=== PATIENT | male | born 1990 | race Caucasian/White ===

== ENCOUNTER 2018-02-07 11:33 | Emergency (ER) | payer SELFPAY ==
[2018-02-07] MEDS ORDERED: Cephalexin 500 MG Cap ONE (12:15)
--- NOTE | 2018-02-07 13:10 | EDM.PDOC ---
ED HPI GENERAL MEDICAL PROBLEM - General Chief Complaint: Upper Extremity Injury/Pain Stated Complaint: INJURY TO HAND FROM DRILL BIT Time Seen by Provider: 02/07/18 11:50 Source of Information: Reports: Patient, RN History Limitations: Reports: No Limitations - History of Present Illness INITIAL COMMENTS - FREE TEXT/NARRATIVE: 27 yr male presents to ER with trauma/puncture of drill bit into top side of left hand, 2nd and third knuckle area. States he was at work and the drill bit bounced off the boat and went through the right top of hand. Pt is moving his hand and states pain. Pt is able to touch fingers to thumb and is able to move fingers side to side. States tetanus vaccine in last couple year and no allergies. States he works for the [employer]. - Related Data Allergies Allergy/AdvReac Type Severity Reaction Status Date / Time No Known Allergies Allergy Verified 02/07/18 12:32 Home Meds: Home Meds NK [No Known Home Meds] 02/07/18 [History] Review of Systems - Review of Systems Review Of Systems: See Below Constitutional: Reports: No Symptoms Respiratory: Reports: No Symptoms Cardiovascular: Reports: No Symptoms Musculoskeletal: Reports: Hand Pain Skin: Reports: Wound (top of left hand) ED EXAM, GENERAL - Physical Exam Exam: See Below Exam Limited By: No Limitations General Appearance: Alert, No Apparent Distress Ears: Hearing Grossly Normal Neck: Normal Inspection, Non-Tender, Full Range of Motion Respiratory/Chest: No Respiratory Distress Extremities: Normal Range of Motion, Normal Capillary Refill Neurological: Alert, Oriented, Normal Cognition Psychiatric: Normal Affect, Normal Mood Skin Exam: Warm, Normal Color, Wound/Incision (Puncture wound to top of left hand through the skin of base of 2nd and third finger. Moves fingers freely.) Course - Re-Assessments/Exams Free Text/Narrative Re-Assessment/Exam: 02/07/18 13:11 Area cleansed well with povidine and saline. Area dried well. Durabond applied to 3 subcutaneous, lacerations to top of left hand. Edges approximated well. Telfa pad applied. Recommend no antibiotic oint to area, as this would make the durabond slough off. Emily applied. Hand/forearm immobilizer applied and huan wrap used to hold in place. Keflex 1 tablet tid X 7 days. Keep area clean and dry. Monitor for any signs of infection. Tetanus vaccine UTD per pt. Recommend Follow-up in clinic in 3 days to assess wound. Departure - Departure Time of Disposition: 12:20 Disposition: Home, Self-Care 01 Condition: Good Clinical Impression: Laceration of hand - Discharge Information *PRESCRIPTION DRUG MONITORING PROGRAM REVIEWED*: Not Applicable *COPY OF PRESCRIPTION DRUG MONITORING REPORT IN PATIENT POLA: Not Applicable Instructions: Laceration Care, Adult Referrals: PCP,None [Primary Care Provider] - Forms: ED Department Discharge Additional Instructions: Take Cephelexin 500mg every 8 hours until gone. Return to clinic for follow up. Notify MD if swelling oozing or redness to site. Keep site dry. See Laceration care sheet.
== END 2018-02-07 12:27 | disposition home or self-care (01) ==
LOC: LB.ED 11:33
DX: S61.412A Laceration without foreign body of left hand, initial encounter (principal); W29.8XXA Contact with other powered hand tools and household machinery, initial encounter
CPT/HCPCS: 12001; 99283; A9270

== ENCOUNTER 2021-06-23 18:51 | Emergency (ER) | payer MEDICAID ==
--- NOTE | 2021-06-23 19:04 | EDM.PDOC ---
ED HPI GENERAL MEDICAL PROBLEM - General Chief Complaint: General Stated Complaint: knee injury Time Seen by Provider: 06/23/21 18:55 - History of Present Illness INITIAL COMMENTS - FREE TEXT/NARRATIVE: Pt comes in with C/O Rt knee pain. He was working tying down a load of logs with a binder, when he slipped and twisted falling to the ground. He felt knee pain and thought his knee cap was pushed to the side. When he tried to straighten his leg the knee cap went back into place. This happened this afternoon. He has sone pain with movement, but at rest the pain is mild. He takes no other meds, and claims he is healthy. - Related Data Allergies Allergy/AdvReac Type Severity Reaction Status Date / Time No Known Allergies Allergy Verified 02/07/18 12:32 Home Meds: Home Meds NK [No Known Home Meds] 02/07/18 [History] ED ROS GENERAL - Review of Systems Review Of Systems: Comprehensive ROS is negative, except as noted in HPI. Musculoskeletal: Reports: Other (Rt knee pain.) ED EXAM, GENERAL - Physical Exam Exam: See Below Extremities: Other (Pt is sitting with an ice kathy on his rt knee. I removed it and the Patella is in place. I can gently move it in all directions a little with minimal pain. He can also flex his Rt knee about 50% slowly.) Course - Re-Assessments/Exams Free Text/Narrative Re-Assessment/Exam: 06/23/21 19:04 He will be given a small knee immobilizer to use for the next few days. Apply ice frequently for a couple days. Tylenol and/ or Motrin as needed for pain. Light duty as tolerated. Follow up in the clinic for re check late this week, or early next week. He may need to have an MRI. Departure - Departure Time of Disposition: 19:15 Disposition: Home, Self-Care 01 Clinical Impression: Strain of knee and leg, right Qualifiers: Encounter type: initial encounter Qualified Code(s): S86.911A - Strain of unspecified muscle(s) and tendon(s) at lower leg level, right leg, initial encounter - Discharge Information *PRESCRIPTION DRUG MONITORING PROGRAM REVIEWED*: No *COPY OF PRESCRIPTION DRUG MONITORING REPORT IN PATIENT POLA: No Additional Instructions: Use knee immobilizer with all activity. Tylenol and/ or Motrin for pain. Apply ice for a couple days. Light duty activity as tolerated. Follow up in the clinic late this week or early next week for re check. An MRI may be needed.
== END 2021-06-23 19:18 | disposition home or self-care (01) ==
LOC: LB.ED 18:51
DX: S86.911A Strain of unspecified muscle(s) and tendon(s) at lower leg level, right leg, initial encounter (principal); X50.1XXA Overexertion from prolonged static or awkward postures, initial encounter
CPT/HCPCS: 99283